=== PATIENT | female | born 1955 | race Caucasian/White ===

== ENCOUNTER 2019-06-18 22:06 | Inpatient (IN) | payer BC ==
[~2019-06-18] VITALS: Ht 157.5 cm; Wt 88.9 kg
--- NOTE | 2019-06-18 22:15 | NUR ---
DR PALMA AT BEDSIDE
--- NOTE | 2019-06-18 22:19 | NUR ---
[id number] FROM HOME C/O ABDOMINAL PAIN X1 DAY +NAUSEA/VOMITTING +BLACK TARRY STOOL.PER RA,BS 250,REC'D 4MG ZOFRAN IV AND NS 150CC EN ROUTE. PT AAOX3, VSS. RR EVEN & UNLABORED. DENIES CP, SOB, DIZZINESS @ THIS TIME. PT SEEN & EVAL'D BY DR. PALMA. AWAITING ORDERS & WILL CONT TO MONITOR.
[2019-06-18] MEDS ORDERED: METOCLOPRAMIDE HCL 10 MG/2 ML VIAL ONE (22:25)
[2019-06-18] MEDS ORDERED: PANTOPRAZOLE 40 MG VIAL ONE (22:25)
[2019-06-18] MEDS ORDERED: diphenhydrAMINE HCL 50 MG/ML VIAL ONE (22:25)
[2019-06-18] MEDS ORDERED: PANTOPRAZOLE 80 MG in IV NS 0.9% 100 ML IV ONE (22:30)
[2019-06-18] MEDS ORDERED: IV NS 0.9% 1,000 ML BAG IV ONE (22:30)
[2019-06-18] MEDS ORDERED: METOCLOPRAMIDE HCL 10 MG/2 ML VIAL IV ONE (22:30)
[2019-06-18] MEDS ORDERED: diphenhydrAMINE HCL 50 MG/ML VIAL IV ONE (22:30)
[2019-06-18] MEDS ORDERED: AMIODARONE 150 MG/3 ML VIAL IV ONE ×2 (22:43→23:27)
[2019-06-18 22:59] LABS: EOSINOPHILS % (AUTO) 0.2 % (0.0-6.0); LYMPHOCYTES # (AUTO) 0.5 /CMM (0.8-4.8); NEUTROPHILS # (AUTO) 4.8 /CMM (1.8-8.9); WHITE BLOOD COUNT (AUTO) 5.6 K/uL (4.3-11.0)
[2019-06-18] MEDS ORDERED: AMIODARONE 450 MG in IV D5W 250 ML IV ONE (23:00)
[2019-06-18] MEDS ORDERED: AMIODARONE 150 MG in IV D5W 100 ML IV ONE (23:00)
[2019-06-18 23:03] LABS: BASOPHILS % (AUTO) 0.1 % (0.0-2.0); LYMPHOCYTES % (AUTO) 9.4 % (20.0-44.0); MEAN CORPUSCULAR HGB CONC 32 g/dl (31.0-36.0); MEAN CORPUSCULAR VOLUME 89 fL (82-100); MONOCYTES # (AUTO) 0.2 /CMM (0.1-1.30); MONOCYTES % (AUTO) 4.3 % (2.0-12.0); PLATELET COUNT (AUTO) 85 /CMM (150-450)
[2019-06-18 23:05] LABS: CREATININE 0.2 mg/dL (0.6-1.3)
[2019-06-18 23:09] LABS: POTASSIUM 1.3 mmol/L (3.5-5.1)
[2019-06-18] MEDS ORDERED: POTASSIUM CL. PREMIX PERIPHER. 50 ML IV ONE (23:11)
[2019-06-18 23:15] LABS: RED BLOOD CELL COUNT(AUTO) 1.64 MIL/uL (4.0-5.2)
[2019-06-18 23:16] LABS: HEMATOCRIT 15 % (33-45); HEMOGLOBIN 4.8 g/dL (11.5-14.8)
[2019-06-18 23:19] LABS: LYMPHOCYTES % (MANUAL) 7 % (16-48); MONOCYTES % (MANUAL) 3 % (0-11.0); NEUTROPHILS % (MANUAL) 90 (42-76)
[2019-06-18 23:20] LABS: BILIRUBIN,DIRECT 0.1 mg/dL (0.0-0.2); BILIRUBIN,TOTAL 0.2 mg/dL (0.2-1.0); TOTAL PROTEIN, SERUM 2.1 g/dL (6.4-8.2)
[2019-06-18 23:22] LABS: ALBUMIN 1.1 g/dL (3.4-5.0)
[2019-06-18] MEDS ORDERED: AMLO5TAB9 PO (23:25)
[2019-06-18] MEDS ORDERED: POTA8TAB3 PO (23:25)
[2019-06-18] MEDS ORDERED: OLME40TA12 PO (23:25)
[2019-06-18] MEDS ORDERED: METO50TA16 PO (23:25)
[2019-06-18] MEDS ORDERED: METO100T14 PO (23:25)
[2019-06-18] MEDS ORDERED: FURO-145 PO (23:25)
[2019-06-18] MEDS ORDERED: ATOR20TA PO (23:25)
--- NOTE | 2019-06-18 23:25 | NUR ---
BLOOD CONSENT OBTAINED.
[2019-06-18] MEDS ORDERED: POTASSIUM CHLORIDE 20 MEQ TAB.PRT.SR PO ONE ×2 (23:30→23:31)
[2019-06-18] MEDS ORDERED: POTASSIUM CL. PREMIX PERIPHER. 50 ML ONE (23:30)
[2019-06-18] MEDS ORDERED: HYDROMORPHONE 1 MG/1 ML DISP.SYRIN IV ONE (23:30)
[2019-06-18] MEDS ORDERED: HYDROMORPHONE 1 MG/1 ML DISP.SYRIN ONE (23:31)
[2019-06-18 23:49] LABS: CALCIUM, SERUM 7.6 mg/dL (8.5-10.1); CREATININE 0.8 mg/dL (0.6-1.3)
[2019-06-19 00:17] LABS: ALBUMIN 3.3 g/dL (3.4-5.0); BILIRUBIN,DIRECT 0.1 mg/dL (0.0-0.2); BILIRUBIN,TOTAL 0.4 mg/dL (0.2-1.0); TOTAL PROTEIN, SERUM 6.5 g/dL (6.4-8.2)
[2019-06-19 00:28] LABS: ABG BASE EXCESS -6.9 mmol/L; ABG OXYGEN SATURATION 91.6 % (92.0-98.5); ABG PCO2 38.8 mmHg (35.0-45.0); ABG PH 7.305 (7.350-7.450); ABG PO2 72.2 mmHg (75.0-100.0); AaDO2 31.1 mmHg; COHb 0.6 % (0.5-1.5); MetHb 0.4 % (0.0-1.5); O2Hb 90.7 % (94.0-97.0); SITE, ABG Left Radial; VENT MODE, BG RA
--- NOTE | 2019-06-19 00:38 | NUR ---
BLOOD TRANSFUSION IN PROGRESS
--- NOTE | 2019-06-19 00:38 | NUR ---
DR PALMA AT BEDSIDE
--- NOTE | 2019-06-19 00:44 | NUR ---
NO ALLERGIC REACTIONS NOTED.
--- NOTE | 2019-06-19 00:46 | NUR ---
PT CONVERTED FROM AFIB RVR TO NSR. DR PALMA NOTIFIED.
--- NOTE | 2019-06-19 00:48 | NUR ---
AMIODARONE DRIP HELD PER ORDER
[2019-06-19 01:49] LABS: OCCULT BLOOD STOOL NEGATIVE (NEGATIVE)
--- NOTE | 2019-06-19 01:50 | NUR ---
2ND UNIT OF BLOOD TRANSFUSING. VERIFIED W/ A 2ND NURSE.
--- NOTE | 2019-06-19 01:55 | NUR ---
NO ADVERSE REACTIONS NOTED. NO ACUTE DISTRESS NOTED.
--- NOTE | 2019-06-19 02:05 | NUR ---
LAB CALLED STATING 3-4 HOURS UNTIL PLATELETS ARE AVAILABLE FOR DATA CENTER ARCHITECT IN THE LAB.
[2019-06-19 02:25] LABS: BASOPHILS % (AUTO) 0.3 % (0.0-2.0); EOSINOPHILS % (AUTO) 0.2 % (0.0-6.0); HEMATOCRIT 35 % (33-45); LYMPHOCYTES # (AUTO) 0.9 /CMM (0.8-4.8); LYMPHOCYTES % (AUTO) 6.7 % (20.0-44.0); MEAN CORPUSCULAR HGB CONC 32 g/dl (31.0-36.0); MEAN CORPUSCULAR VOLUME 91 fL (82-100); MONOCYTES # (AUTO) 0.5 /CMM (0.1-1.30); MONOCYTES % (AUTO) 3.9 % (2.0-12.0); NEUTROPHILS # (AUTO) 12.2 /CMM (1.8-8.9); NEUTROPHILS % (AUTO) 88.9 % (43.0-81.0); PLATELET COUNT (AUTO) 186 /CMM (150-450); RED BLOOD CELL COUNT(AUTO) 3.82 MIL/uL (4.0-5.2); WHITE BLOOD COUNT (AUTO) 13.7 K/uL (4.3-11.0)
[2019-06-19] MEDS ORDERED: ONDANSETRON HCL/PF 4 MG/2 ML VIAL IVP PRN (03:30)
[2019-06-19] MEDS ORDERED: ACETAMINOPHEN 650 MG/SUPP.RECT RC PRN (03:30)
[2019-06-19] MEDS ORDERED: IV D5/ 0.9% NACL 1,000 ML IV PRN (03:30)
--- NOTE | 2019-06-19 04:32 | NUR ---
PT RESTING COMFORTABLY. NO MEDICAL COMPLAINTS AT THIS TIME. NO ACUTE DISTRESS NOTED. WILL CONTINUE TO MONITOR
--- NOTE | 2019-06-19 07:30 | NUR ---
PT IS AWAKE AND ALERT NOT IN RESPIRATORY DISTRESS, V/S STABLE, WILL CONTINUE TO MONITOR.
[2019-06-19 07:40] LABS: BASOPHILS % (AUTO) 0.3 % (0.0-2.0); EOSINOPHILS % (AUTO) 0.1 % (0.0-6.0); HEMATOCRIT 41 % (33-45); HEMOGLOBIN 13.5 g/dL (11.5-14.8); LYMPHOCYTES # (AUTO) 1.6 /CMM (0.8-4.8); LYMPHOCYTES % (AUTO) 16.1 % (20.0-44.0); MEAN CORPUSCULAR HGB CONC 33 g/dl (31.0-36.0); MEAN CORPUSCULAR VOLUME 87 fL (82-100); MONOCYTES # (AUTO) 0.5 /CMM (0.1-1.30); MONOCYTES % (AUTO) 5.6 % (2.0-12.0); NEUTROPHILS # (AUTO) 7.6 /CMM (1.8-8.9); NEUTROPHILS % (AUTO) 77.9 % (43.0-81.0); PLATELET COUNT (AUTO) 161 /CMM (150-450); RED BLOOD CELL COUNT(AUTO) 4.66 MIL/uL (4.0-5.2); WHITE BLOOD COUNT (AUTO) 9.8 K/uL (4.3-11.0)
[2019-06-19 07:52] LABS: ALBUMIN 3.4 g/dL (3.4-5.0); BILIRUBIN,TOTAL 0.6 mg/dL (0.2-1.0); CALCIUM, SERUM 8.1 mg/dL (8.5-10.1); CREATININE 0.7 mg/dL (0.6-1.3); MAGNESIUM 2.2 mg/dL (1.8-2.4); PHOSPHORUS 3.7 mg/dL (2.5-4.9); TOTAL PROTEIN, SERUM 6.5 g/dL (6.4-8.2)
[2019-06-19 08:06] LABS: IRON, SERUM 107 ug/dl (50-175); TOTAL IRON BINDING CAPACITY 368 ug/dl (250-450)
[2019-06-19 08:09] LABS: THYROID STIMULATING HORMONE 1.288 uIU/mL (0.358-3.74)
--- NOTE | 2019-06-19 08:29 | NUR ---
NURSING SUP GAVE 326-1.
--- NOTE | 2019-06-19 08:50 | NUR ---
REPORT GIVEN TO NASRIN ANDERSON FOR [facility].
[2019-06-19] MEDS ORDERED: PANTOPRAZOLE 40 MG VIAL IV ONE ×2 (09:00→10:00)
[2019-06-19 09:15] VITALS: BP 157/62
--- NOTE | 2019-06-19 09:38 | NUR ---
APPLIED BEHAVIOR SPECIALISTASSISTANT PROFESSOR NOTE PATIENT ARRIVED BY GURNEY AND AMBULATORY TO BED WITH STEADY GAIT. PATIENT IN BED RESTING COMFORTABLY. PATIENT IN NO ACUTE DISTRESS. NO SOB NOTED. PATIENT BREATHING IS EVEN AND UNLABORED. PATIENT ON CARDIAC MONITORING READING SINUS RHYTHM HR 63. PATIENT BED IS LOCKED AND IN LOWEST POSITION. CALL LIGHT WITHIN REACH. WILL CONTINUE TO MONITOR. DR. DUKE IS AWARE, TO FOLLOW THROUGH WITH ORDERS.
[2019-06-19] MEDS ORDERED: ASPIRIN 81 MG TAB.CHEW PO SCH (11:00)
[2019-06-19] MEDS: ENOXAPARIN SODIUM 80 MG/0.8 ML DISP.SYRIN SQ SCH ×2 (12:17→21:01)
[2019-06-19] MEDS: MORPHINE SULFATE INJ 2 MG/ML DISP.SYRIN IV PRN ×2 (14:16→20:58)
[2019-06-19 16:00] VITALS: BP_SYST 116; BP_SYST 141; BP_DIAS 65; BP_DIAS 68
[2019-06-19] MEDS ORDERED: IOHEXOL-350 100 ML VIAL IV ONE ×2 (16:57→18:22)
[2019-06-19] MEDS ORDERED: METOPROLOL TARTRATE INJ 5 MG/5 ML AMPUL ONE (17:26)
[2019-06-19] MEDS ORDERED: NITROGLYCERIN 0.4 MG/TAB BOTTLE ONE (17:26)
[2019-06-19] MEDS ORDERED: METOPROLOL TARTRATE INJ 5 MG/5 ML AMPUL IVP PRN (17:30)
[2019-06-19] MEDS ORDERED: NITROGLYCERIN 0.4 MG/TAB BOTTLE SL ONE (17:30)
[2019-06-19 17:35] LABS: APPEARANCE,URINE CLEAR (CLEAR); BILIRUBIN,URINE NEGATIVE (NEGATIVE); BLOOD, URINE LARGE Ery/uL (NEGATIVE); COLOR,URINE YELLOW (YELLOW); KETONES,URINE NEGATIVE (NEGATIVE); LEUKOCYTE ESTERASE ,URINE TRACE (NEGATIVE); NITRITE, URINE NEGATIVE (NEGATIVE); PH,URINE 5.5 (5.0-8.0); PROTEIN,URINE NEGATIVE (NEGATIVE); UGLUCOSE NEGATIVE (NEGATIVE); UROBILINOGEN,URINE 0.2 EU/dL (0.2)
[2019-06-19 17:51] LABS: BACTERIA,URINE 3+ /HPF (None Seen); SQUAMOUS EPITHELIAL CELL,UR 0-2 /HPF (None Seen); WBC,URINE 5 /HPF (0-3)
[2019-06-19] MEDS ORDERED: IV NS 0.9% 250 ML IV ONE (18:22)
[2019-06-19] MEDS ORDERED: CT SWABBABLE VALVE TRANS SET 1 EA INFUS.SET MC ONE (18:22)
--- NOTE | 2019-06-19 18:59 | NUR ---
Left upper arm IV catheter infiltrated. Aspirate and IV is removed. Applied iced pack and pressure to the site. Patient refused repeat CTCA at the moment. Bernice dispatcher radioactive waste disposal called [facility] and left a message.
--- NOTE | 2019-06-19 19:03 | NUR ---
Report given to NASRIN Graham for [facility]. RN made aware regarding the infiltration of the IV.
--- NOTE | 2019-06-19 19:09 | NUR ---
Second CTA scan requested per Dr. Pederson. Pt's I.V infiltrated on second exam. Pt no longer wanted to continue exam. Communicated with Ashanti from [facility] to notify Dr. Mendes regarding I.V infiltration and pt refusing to continue exam.
--- NOTE | 2019-06-19 19:27 | NUR ---
CONTROL ELECTRICIAN CLOSING NOTE PATIENT IN BED RESTING COMFORTABLY. PATIENT IN NO ACUTE DISTRESS. NO SOB NOTED. PATIENT BREATHING IS EVEN AND UNLABORED. PATIENT ON CARDIAC MONITORING READING SINUS RHYTHM HR 60. PATIENT KEPT CLEAN, DRY AND COMFORTABLE THROUGHOUT SHIFT. PATIENT INSTRUCTED TO MAINTAIN NPO STATUS.PATIENT BED IS LOCKED AND IN LOWEST POSITION. CALL LIGHT WITHIN REACH. WILL CONTINUE TO MONITOR. WILL ENDORSE CARE TO PM SHIFT FOR [facility].
[2019-06-19 20:13] VITALS: BP 141/65
[2019-06-19 20:19] VITALS: BP 141/65
[2019-06-19] MEDS ORDERED: PANTOPRAZOLE 40 MG VIAL IV SCH (21:00)
[2019-06-19] MEDS ORDERED: ATORVASTATIN 40 MG TABLET PO SCH (22:30)
[2019-06-19 23:41] VITALS: BP 124/58
[2019-06-19 23:47] VITALS: BP 124/58
[2019-06-20 04:00] VITALS: BP 141/65
[2019-06-20 05:03] VITALS: BP 160/68
--- NOTE | 2019-06-20 05:04 | NUR ---
ENDING NOTES: REMAINS ALERT AND ORIENTATED X3. IN GOOD SPIRITS. AMBULATES TO THE BATHROOM WITH STANDBY ASSIST STEADY ON HER LEGS. UA CLEAR YELLOW. AWARE WE NEED A STOOL SAMPLE, DISH IN THE TOILET. MEDICATED X1 WITH MORPHINE FOR RIGHT FLANKL PAIN AND IT WAS EFFECTIVE. MEDICATED X1 FOR H/A WITH TYLENOL SUPP AND EFFECTIVE. REMAINS NPO ORDERED. ON THE CAN RECONDITIONER SHE IS SB HR 59 TO SR HR 64. NO SOB NO C/O CHESTPAIN. SPOKE TO THE DAUGHTER AND SHE WANTS TO COME SEE HER MOM. EXPLAINED TO HER THE POLICY WE ARE ENFORCING AT THIS TIME TO PROTECT HER AND THE PATIENTS IN THE HOSPITAL. SHE SAID SHE WILL STILL COME AND SPEAK TO THE IT TELECOM TECHNICIAN. TOLD HER IT WOULD BE A WASTED TRIP IN, SHE SPOKE TO HER MOM ON THE PHONE, AND THE MOTHER SPOKE TO HER ALSO. MS. SANDERSON COMMENTED "SOMETIMES MY DAUGHTER IS TOO MUCH!"
--- NOTE | 2019-06-20 07:33 | NUR ---
RN OPENING NOTES Patient received on 2L nasal cannula, no sob noted, patient shows no s/s of pain. NPO at this time but dr. Davin carrasquillo with giving patient ice chips. 20 L fa with d5 NS @ 70 ml per hour. Bed at the lowest setting, call light within reach, side rails up x2.
[2019-06-20 08:00] VITALS: BP 151/69
[2019-06-20] MEDS ORDERED: METOPROLOL SUCCINATE 50 MG TAB.SR.24H PO SCH ×2 (08:00→22:00)
[2019-06-20 08:01] LABS: BASOPHILS % (AUTO) 0.5 % (0.0-2.0); EOSINOPHILS % (AUTO) 2.3 % (0.0-6.0); HEMATOCRIT 38 % (33-45); HEMOGLOBIN 12.7 g/dL (11.5-14.8); LYMPHOCYTES # (AUTO) 1.7 /CMM (0.8-4.8); LYMPHOCYTES % (AUTO) 22.2 % (20.0-44.0); MEAN CORPUSCULAR HGB CONC 33 g/dl (31.0-36.0); MEAN CORPUSCULAR VOLUME 88 fL (82-100); MONOCYTES # (AUTO) 0.5 /CMM (0.1-1.30); MONOCYTES % (AUTO) 7.2 % (2.0-12.0); NEUTROPHILS # (AUTO) 5.1 /CMM (1.8-8.9); NEUTROPHILS % (AUTO) 67.8 % (43.0-81.0); PLATELET COUNT (AUTO) 150 /CMM (150-450); RED BLOOD CELL COUNT(AUTO) 4.37 MIL/uL (4.0-5.2); WHITE BLOOD COUNT (AUTO) 7.5 K/uL (4.3-11.0)
[2019-06-20 08:20] LABS: ALBUMIN 3.3 g/dL (3.4-5.0); BILIRUBIN,TOTAL 0.7 mg/dL (0.2-1.0); CALCIUM, SERUM 8.4 mg/dL (8.5-10.1); CREATININE 0.7 mg/dL (0.6-1.3); MAGNESIUM 2.1 mg/dL (1.8-2.4); PHOSPHORUS 2.6 mg/dL (2.5-4.9); POTASSIUM 3.8 mmol/L (3.5-5.1); TOTAL PROTEIN, SERUM 6.4 g/dL (6.4-8.2)
[2019-06-20] MEDS ORDERED: LOSARTAN POTASSIUM 50 MG TABLET PO SCH (09:00)
[2019-06-20] MEDS ORDERED: ASPIRIN EC 325 MG TABLET.DR PO SCH (09:00)
[2019-06-20 09:03] VITALS: BP 151/69
--- NOTE | 2019-06-20 12:45 | NUR ---
paralegal internship notes Patient discharged at this time. No sob noted, vital signs stable. Patient denies pain. Patient has all her belongings and paperworks, no further question regarding the discharge. Patient refused photos to be taken.
== END 2019-06-20 12:45 | disposition home or self-care (01) | DRG 280 ==
LOC: ER 22:08 → TELE 06-19 08:43 → MED 06-20 10:00
PROVIDERS: ADMIT Internal Medicine; ATTEND Hospitalist
PROC: 30233P1 Transfusion of Nonautologous Frozen Red Cells into Peripheral Vein, Percutaneous Approach (ICD-10-PCS; principal; 2019-06-19)
DX: I21.4 Non-ST elevation (NSTEMI) myocardial infarction (principal); N17.0 Acute kidney failure with tubular necrosis; E87.2 Acidosis; E44.1 Mild protein-calorie malnutrition; I42.1 Obstructive hypertrophic cardiomyopathy; I48.0 Paroxysmal atrial fibrillation; D50.0 Iron deficiency anemia secondary to blood loss (chronic); E78.5 Hyperlipidemia, unspecified; I11.0 Hypertensive heart disease with heart failure; I50.9 Heart failure, unspecified; J45.909 Unspecified asthma, uncomplicated; E66.9 Obesity, unspecified; Z68.35 Body mass index [BMI] 35.0-35.9, adult; M19.90 Unspecified osteoarthritis, unspecified site; I08.0 Rheumatic disorders of both mitral and aortic valves; R11.10 Vomiting, unspecified; E86.0 Dehydration; R73.9 Hyperglycemia, unspecified
CPT/HCPCS: 36415; 36600; 71045-TC; 75574; 80048-TC; 80053-TC; 80061-TC; 80076-TC; 81000-TC; 82272-TC; 82803-TC; 83540-TC; 83605-TC; 83690-TC; 83735-TC; 84100-TC; 84443-TC; 84484-TC; 85025-TC; 85610-TC; 86850-TC; 86921-TC; 87081-TC; 87086-TC; 93307-TC; C9113; G0378; J0282; J1170; J1200; J1650; J2270; J2765; J3480; J3490; J7030; J7040; J7042; J7050; J7060; P9016-BL; Q9967